=== PATIENT | male | born 1950 | race Caucasian/White ===

== ENCOUNTER → 2017-01-08 | Outpatient (CLI) | payer MEDICARE, OTHER ==
[~2017-01-08] MED LIST: ALBUTEROL17 GM INH; AMOX TR-K CLV 81 TA1 PO; DIOVAN; DOXYCYCLINE PO; FLOVENT HFA12 G1 INH; FLOVENT HFA12 GM; HYDROCODON-ACE1 EAC1 PO; HYDROCODONE/APA1 T16 PO; HYZAAR 100-12.51 TAB PO; LIPITOR; LIPITOR40 MG PO; LOSARTAN-HCTZ1 EAC2 PO; MEDROL4 MG/DOSE- PO; NASONEX17 GM; PREDNISONE PO; SPIRIVA18 MCG; SPIRIVA18 MCG INH; SYMBICORT INH; TOPROL XL
--- NOTE | ~2017-01-08 | CT55 ---
[facility] A Service of [facility] & [facility] RADIOLOGY TEXT RESULTS PATIENT: NORM MORRIS LOCATION: [facility] : 48 UNIT #: [id number] AGE: [address]: Roberto Becerril MD SEX: M ORDER DR: [id number] [facility] [address] [place], [place] [address] [id number] O MR#: [id number] [facility] #: [id number] NAME: NORM MORRIS. : 1950 SEX: M STUDY DATE/TIME: 01/08/2017 7:52 UNIT: [facility] ROOM: STUDY DESCRIPTION: CT Chest W Con Attending Physician: Roberto Becerril M.D. Referring Physician: Roberto Becerril M.D. Ordering Physician: Roberto Becerril M.D. Primary Care Physician: Pat Rice M.D. MEDICAL IMAGING REPORT This report is preliminary unless electronic signature is present EXAM Chest CT with contrast, 01/08/2017. INDICATIONS 66-year-old male with a history of lung cancer. Chemotherapy and radiation therapy performed most recently in 2014. History of renal and pulmonary malignancies. History of left nephrectomy. COPD. Observation for suspected malignant neoplasm. Active malignancy. History of upper lobe nodule on the left/scarring on prior CT scans. TECHNIQUE Contrast-enhanced CT scan of the chest was performed and compared with 07/10/2016 and 01/17/2016. Comparison also made with more distant CT 04/12/2015. This CT exam was performed with one or more of the following radiation dose reduction techniques: automatic exposure control, adjustment of mA and/or kV according to patient size, and iterative reconstruction. FINDINGS CT CHEST: There is a 9 mm nodular density in the upper lobe on the left associated with a previously described area of scarring. Nodularity appears similar to CT scans dated 01/17/2016 and 04/12/2015. Overall, the appearance is not significantly changed. There is no pleural effusion or new parenchymal nodule. There is old healed granulomatous disease. Probable secretions associated with the tracheobronchial tree. There is background emphysema. Included thyroid unremarkable. No pericardial effusion. No axillary adenopathy. No mediastinal adenopathy. Aorta demonstrates atherosclerotic change but no aneurysm or dissection. Included upper abdomen demonstrates granulomatous change of the adrenal STS. [facility] A Service of [facility] & [facility] RADIOLOGY TEXT RESULTS PATIENT: NORM MORRIS LOCATION: [facility] : 48 UNIT #: [id number] AGE: [address]: Roberto Becerril MD SEX: M ORDER DR: glands and spleen. Included right kidney unremarkable. Left kidney not identified in the field of view. The patient has a history of left nephrectomy. There is mild fatty infiltration of the liver. No new suspicious bone lesion. Stable sclerotic lesion in the left seventh rib. IMPRESSION 1. Parenchymal scarring and nodularity in the upper lobe on the left, not significantly changed and back to 2015 for technical factors. No new suspicious pulmonary nodule. 2. Background changes of emphysema. No new adenopathy. 3. Stable sclerotic left seventh rib bone lesion. Dictated by... Jaime Gage M.D. THIS IS AN ELECTRONICALLY VERIFIED REPORT Jaime Gage M.D. at 01/08/2017 12:45 PM NGUYEN/magdaleno TD: 01/08/2017 10:57 JOB #: [id number] MEDICAL IMAGING REPORT Page 1 of 1 COPY
[2017-01-08 07:46] LABS: POC - CREATININE 1.01 mg/dL (0.64-1.27); POC - GFR >60.0 mL/min (>60)
== END | disposition home or self-care (01) ==
LOC: CCAT 07:03
PROVIDERS: Internal Medicine Medical Oncology
DX: C34.90 Malignant neoplasm of unspecified part of unspecified bronchus or lung (principal); M89.9 Disorder of bone, unspecified; J43.9 Emphysema, unspecified; Z90.5 Acquired absence of kidney
CPT/HCPCS: 71260; 82565; Q9967